=== PATIENT | female | born 1950 | race Caucasian/White ===

== ENCOUNTER → 2016-10-20 | Outpatient (CLI) | payer MEDICARE | LOC: KOH-I 13:49 | DX: M54.16 Radiculopathy, lumbar region (principal); M48.00 Spinal stenosis, site unspecified; S22.000A Wedge compression fracture of unspecified thoracic vertebra, initial encounter for closed fracture; M47.816 Spondylosis without myelopathy or radiculopathy, lumbar region | CPT/HCPCS: 72148 ==

== ENCOUNTER → 2016-11-11 | Outpatient (CLI) | payer MEDICARE | LOC: KOH-I 13:37 | DX: M54.14 Radiculopathy, thoracic region (principal) | CPT/HCPCS: 72146 ==